=== PATIENT | male | born 1960 | race Caucasian/White ===

== ENCOUNTER 2017-05-14 20:39 | Emergency (ER) | payer MEDICAID ==
[~2017-05-14] VITALS: Ht 162.6 cm; Wt 69.0 kg
[~2017-05-14 20:39] MED LIST: ALBU8HFA PO; AMLO5TAB PO; ATOR10TA87 PO; HYDR-3965 PO; LOSA50TA3 PO; MECL-111 PO; NITR0.4T48 SL
[2017-05-14] MEDS ORDERED: ACET-3068 PO (22:52)
[2017-05-14 23:17] VITALS: BP 134/87
== END 2017-05-14 23:24 | disposition home or self-care (01) ==
LOC: ER 20:39
DX: S80.02XA Contusion of left knee, initial encounter (principal); I25.10 Atherosclerotic heart disease of native coronary artery without angina pectoris; Z86.73 Personal history of transient ischemic attack (TIA), and cerebral infarction without residual deficits; I10 Essential (primary) hypertension; I25.2 Old myocardial infarction; E78.00 Pure hypercholesterolemia, unspecified; J45.909 Unspecified asthma, uncomplicated; Z56.0 Unemployment, unspecified; Z79.899 Other long term (current) drug therapy; W01.0XXA Fall on same level from slipping, tripping and stumbling without subsequent striking against object, initial encounter; Y93.89 Activity, other specified; Y92.89 Other specified places as the place of occurrence of the external cause; Y99.8 Other external cause status
CPT/HCPCS: 73564; 99284

== ENCOUNTER 2017-05-19 01:23 | Emergency (ER) | payer MEDICAID ==
[~2017-05-19] VITALS: Ht 162.6 cm; Wt 70.0 kg
[~2017-05-19 01:23] MED LIST changes: +ACET-3068 PO
[2017-05-19] MEDS ORDERED: HYDROcodone/acetaminophen 10/325mg tab PO ONE (02:10)
[2017-05-19 02:56] VITALS: BP 118/64
== END 2017-05-19 02:58 | disposition home or self-care (01) ==
LOC: ER 01:23
DX: M25.462 Effusion, left knee (principal); M25.562 Pain in left knee; I25.10 Atherosclerotic heart disease of native coronary artery without angina pectoris; E78.00 Pure hypercholesterolemia, unspecified; I10 Essential (primary) hypertension; I25.2 Old myocardial infarction; J45.909 Unspecified asthma, uncomplicated; Z56.0 Unemployment, unspecified; Z86.73 Personal history of transient ischemic attack (TIA), and cerebral infarction without residual deficits; Z79.899 Other long term (current) drug therapy; Z91.041 Radiographic dye allergy status; W19.XXXA Unspecified fall, initial encounter; Y93.89 Activity, other specified; Y92.89 Other specified places as the place of occurrence of the external cause; Y99.9 Unspecified external cause status
CPT/HCPCS: 99284; A6449

== ENCOUNTER 2017-08-15 13:55 | Emergency (ER) | payer MEDICAID ==
[~2017-08-15] VITALS: Ht 162.6 cm; Wt 65.0 kg
[~2017-08-15 13:55] MED LIST changes: -ACET-3068 PO
[2017-08-15] MEDS ORDERED: aspirin 81mg tab.chew PO ONE (14:25)
[2017-08-15 14:58] LABS: BASOPHILS % (AUTO) 0.5 % (0-1); EOSINOPHILS # (AUTO) 0.2 X10'3 (0-0.9); EOSINOPHILS % (AUTO) 3.2 % (0-6); HEMATOCRIT 41.4 % (42.0-52.0); HEMOGLOBIN 14.1 g/dl (14.0-17.9); LYMPHOCYTES # (AUTO) 1.1 X10'3 (1.1-4.8); LYMPHOCYTES % (AUTO) 14.3 % (21-51); MEAN CORPUSCULAR HEMOGLOBIN 32.1 PG (27.0-31.0); MEAN CORPUSCULAR HGB CONC 34.1 % (33.0-36.5); MEAN CORPUSCULAR VOLUME 94.1 FL (78-98); MEAN PLATELET VOLUME 8.3 FL (7.4-10.4); MONOCYTES # (AUTO) 0.5 X10'3 (0-0.9); MONOCYTES % (AUTO) 6.5 % (2-12); NEUTROPHILS # (AUTO) 5.8 X10'3 (1.8-7.7); NEUTROPHILS % (AUTO) 75.5 % (42-75); PLATELET COUNT 165 X10'3 (140-440); RED CELL DISTRIBUTION WIDTH 15.3 % (11.5-14.5); WHITE BLOOD COUNT 7.7 X10'3 (4.5-11.0)
[2017-08-15 15:14] LABS: ALANINE AMINOTRANSFERASE 15 U/L (12-78); ALBUMIN 3.9 G/DL (3.4-5.0); ALKALINE PHOSPHATASE 76 IU/L (46-116); ANION GAP 10 (8-16); ASPARTATE AMINO TRANSFERASE 12 U/L (10-37); BILIRUBIN,TOTAL 0.7 MG/DL (0.1-1.0); BLOOD UREA NITROGEN 20 MG/DL (7-18); BUN/CREATININE RATIO 10.4 (5.4-32.0); CALCIUM 8.9 MG/DL (8.5-10.1); CHLORIDE 108 MMOL/L (99-107); CREATININE 1.92 MG/DL (0.60-1.10); GLUCOSE 114 MG/DL (70-104); POTASSIUM 4.1 MMOL/L (3.5-5.1); SODIUM 142 MMOL/L (135-145); TOTAL CARBON DIOXIDE 24.1 MMOL/L (24-32); TOTAL PROTEIN 7.7 G/DL (6.4-8.2); eGFR 36 ML/MIN
[2017-08-15] MEDS ORDERED: MECL-111 PO (16:09)
[2017-08-15] MEDS ORDERED: ONDA4TAB9 PO (16:09)
[2017-08-15 17:33] VITALS: BP 142/68
== END 2017-08-15 18:34 | disposition home or self-care (01) ==
LOC: ER 13:56
DX: I12.9 Hypertensive chronic kidney disease with stage 1 through stage 4 chronic kidney disease, or unspecified chronic kidney disease (principal); R42 Dizziness and giddiness; N18.9 Chronic kidney disease, unspecified; R07.9 Chest pain, unspecified; I25.10 Atherosclerotic heart disease of native coronary artery without angina pectoris; E78.00 Pure hypercholesterolemia, unspecified; I25.2 Old myocardial infarction; J45.909 Unspecified asthma, uncomplicated; Z56.0 Unemployment, unspecified; Z86.73 Personal history of transient ischemic attack (TIA), and cerebral infarction without residual deficits; Z88.8 Allergy status to other drugs, medicaments and biological substances; Z79.899 Other long term (current) drug therapy
CPT/HCPCS: 36415; 70450; 71045; 80053; 83735; 83880; 84484; 85025; 93005; 99285

== ENCOUNTER 2017-08-23 08:05 | Inpatient (IN) | payer MEDICAID ==
[~2017-08-23] VITALS: Ht 162.6 cm; Wt 65.0 kg
[2017-08-23] MEDS ORDERED: normal saline 1000ML IV soln IVB ONE (08:25)
[2017-08-23] MEDS ORDERED: TIZA2TAB4 PO (08:28)
[2017-08-23] MEDS ORDERED: ASPI81TA52 PO (08:28)
[2017-08-23] MEDS ORDERED: CITA-278 PO (08:28)
[2017-08-23] MEDS ORDERED: GABA-532 PO (08:28)
[2017-08-23] MEDS ORDERED: verapamil 2.5 mg/ml inj IV ONE (08:30)
[2017-08-23] MEDS: diltiazem-NS 100mg/100ml 100 ML IV PRN (08:47)
[2017-08-23 08:49] LABS: BASOPHILS % (AUTO) 0.1 % (0-1); EOSINOPHILS # (AUTO) 0.2 X10'3 (0-0.9); EOSINOPHILS % (AUTO) 2.3 % (0-6); HEMATOCRIT 41.8 % (42.0-52.0); HEMOGLOBIN 14.4 g/dl (14.0-17.9); LYMPHOCYTES # (AUTO) 1.3 X10'3 (1.1-4.8); LYMPHOCYTES % (AUTO) 17.2 % (21-51); MEAN CORPUSCULAR HEMOGLOBIN 32.3 PG (27.0-31.0); MEAN CORPUSCULAR HGB CONC 34.5 % (33.0-36.5); MEAN CORPUSCULAR VOLUME 93.6 FL (78-98); MEAN PLATELET VOLUME 8.7 FL (7.4-10.4); MONOCYTES # (AUTO) 0.5 X10'3 (0-0.9); MONOCYTES % (AUTO) 6.7 % (2-12); NEUTROPHILS # (AUTO) 5.6 X10'3 (1.8-7.7); NEUTROPHILS % (AUTO) 73.7 % (42-75); PLATELET COUNT 145 X10'3 (140-440); RED BLOOD COUNT 4.47 X10'6 (4.70-6.10); RED CELL DISTRIBUTION WIDTH 14.4 % (11.5-14.5); WHITE BLOOD COUNT 7.6 X10'3 (4.5-11.0)
[2017-08-23 08:59] LABS: INR 1.2 INR; PARTIAL THROMBOPLASTIN TIME 27 SECONDS (22-32); PROTHROMBIN TIME 12.5 SECONDS (9.0-12.0)
[2017-08-23 09:03] LABS: ALANINE AMINOTRANSFERASE 17 U/L (12-78); ALBUMIN 3.8 G/DL (3.4-5.0); ALKALINE PHOSPHATASE 72 IU/L (46-116); ANION GAP 14 (8-16); ASPARTATE AMINO TRANSFERASE 14 U/L (10-37); BILIRUBIN,TOTAL 0.6 MG/DL (0.1-1.0); BLOOD UREA NITROGEN 31 MG/DL (7-18); BUN/CREATININE RATIO 15.8 (5.4-32.0); CHLORIDE 108 MMOL/L (99-107); CREATININE 1.96 MG/DL (0.60-1.10); GLUCOSE 112 MG/DL (70-104); MAGNESIUM 1.7 MG/DL (1.5-2.4); POTASSIUM 3.4 MMOL/L (3.5-5.1); SODIUM 142 MMOL/L (135-145); TOTAL CARBON DIOXIDE 19.8 MMOL/L (24-32); TOTAL PROTEIN 7.6 G/DL (6.4-8.2); eGFR 35 ML/MIN
[2017-08-23] MEDS ORDERED: nitroGLYCERIN 0.4mg SUBLingual tab SL PRN (11:50)
[2017-08-23] MEDS: potassium Cl 20mEq in NS 1,000 ML IV SCH ×2 (11:51→20:36)
[2017-08-23] MEDS ORDERED: acetaminophen 650mg rectal suppository RC PRN (11:55)
[2017-08-23] MEDS ORDERED: magnesium hydroxide 30ml (MOM) UD suspension PO PRN (11:55)
[2017-08-23] MEDS ORDERED: bisacodyl 10mg suppository rectal RC PRN (11:55)
[2017-08-23] MEDS ORDERED: metoclopramide 5 mg/ml inj IV PRN (11:55)
[2017-08-23] MEDS ORDERED: morphine 4 MG/ML inj SYRINge IV PRN ×2 (11:55)
[2017-08-23] MEDS ORDERED: HYDROmorphone 1 mg/ml syringe IV PRN ×2 (11:55)
[2017-08-23] MEDS ORDERED: mag hydrox/Alum hydrox/simeth 30ml oral suspension PO PRN (11:55)
[2017-08-23] MEDS ORDERED: potassium Cl 40MEQ/NS 500ml 500 ML IV PRN ×2 (11:55)
[2017-08-23] MEDS ORDERED: diphenhydrAMINE 50 mg/ml inj IV PRN (11:55)
[2017-08-23] MEDS ORDERED: diphenhydrAMINE 25mg capsule PO PRN (11:55)
[2017-08-23] MEDS ORDERED: acetaminophen 325mg tablet PO PRN (11:55)
[2017-08-23] MEDS ORDERED: ondansetron/PF 4mg/2ml inj IV PRN (11:55)
[2017-08-23] MEDS ORDERED: potassium Cl 20 mEq SR tablet PO PRN ×2 (11:55)
[2017-08-23] MEDS ORDERED: HYDROcodone/acetaminophen 10/325mg tab PO PRN (11:55)
[2017-08-23] MEDS ORDERED: HYDROcodone/acetaminophen 5mg/325mg tablet PO PRN (11:55)
[2017-08-23] MEDS ORDERED: diltiazem-NS 100mg/100ml 100 ML IV SCH (12:00)
[2017-08-23] MEDS ORDERED: normal saline 1000ml 1,000 ML IVB ONE (12:03)
[2017-08-23 12:23] LABS: D-DIMER < 0.19 MG/L FEU (0-0.50)
[2017-08-23 12:24] LABS: HEMOGLOBIN A1C 5.9 % (4.5-6.2)
[2017-08-23 12:33] LABS: LIPASE 152 U/L (73-393); PHOSPHORUS 1.7 MG/DL (2.3-4.5)
[2017-08-23 13:55] LABS: CLARITY,URINE CLEAR (Clear); COLOR,URINE STRAW (Yellow); GLUCOSE, URINE NEGATIVE (Neg); KETONES,URINE NEGATIVE (Neg); LEUKOCYTE ESTERASE ,URINE NEGATIVE (Neg); NITRITES, URINE NEGATIVE (Neg); OCCULT BLOOD,URINE NEGATIVE (Neg); PROTEIN,URINE NEGATIVE (Neg); UROBILINOGEN,URINE 0.2 E.U/dL (0.2-1.0)
[2017-08-23] MEDS: tizanidine 4mg tablet PO SCH ×2 (14:00→19:50)
[2017-08-23 14:03] LABS: UA COLLECTION TYPE URINAL
[2017-08-23 14:07] LABS: URINE AMPHETAMINE SCREEN NEGATIVE (Neg); URINE BARBITUATE SCREEN NEGATIVE (Neg); URINE BENZODIAZEPINES SCREEN NEGATIVE (Neg); URINE CANNABINOID SCREEN NEGATIVE (Neg); URINE COCAINE SCREEN NEGATIVE (Neg); URINE METHADONE SCREEN NEGATIVE (Neg); URINE OPIATE SCREEN NEGATIVE (Neg); URINE PHENCYCLIDINE SCREEN NEGATIVE (Neg)
[2017-08-23 17:23] VITALS: BP 136/89
[2017-08-23 19:00] VITALS: BP 123/65
[2017-08-23] MEDS: gabapentin 300mg capsule PO SCH (19:50)
[2017-08-23] MEDS: docusate sod 100mg capsule PO SCH (19:50)
[2017-08-23] MEDS: enoxaparin 60mg/0.6ml syringe SUBCUT SCH (20:37)
[2017-08-23 21:00] VITALS: BP 141/58
[2017-08-23] MEDS ORDERED: temazepam 15mg capsule PO PRN (21:00)
[2017-08-23 23:00] VITALS: BP 114/48
[2017-08-24] VITALS (11 sets, daily range): BP systolic 106–142; BP diastolic 43–81
[2017-08-24] MEDS: tizanidine 4mg tablet PO SCH ×4 (01:45→19:06)
[2017-08-24] MEDS: diltiazem-NS 100mg/100ml 100 ML IV PRN (02:00)
[2017-08-24 05:38] LABS: BASOPHILS % (AUTO) 0.2 % (0-1); EOSINOPHILS # (AUTO) 0.2 X10'3 (0-0.9); EOSINOPHILS % (AUTO) 3.5 % (0-6); HEMATOCRIT 38.1 % (42.0-52.0); HEMOGLOBIN 12.8 g/dl (14.0-17.9); LYMPHOCYTES # (AUTO) 1.9 X10'3 (1.1-4.8); LYMPHOCYTES % (AUTO) 29.3 % (21-51); MEAN CORPUSCULAR HEMOGLOBIN 31.9 PG (27.0-31.0); MEAN CORPUSCULAR HGB CONC 33.7 % (33.0-36.5); MEAN CORPUSCULAR VOLUME 94.7 FL (78-98); MEAN PLATELET VOLUME 9.3 FL (7.4-10.4); MONOCYTES # (AUTO) 0.5 X10'3 (0-0.9); MONOCYTES % (AUTO) 7.2 % (2-12); NEUTROPHILS # (AUTO) 3.9 X10'3 (1.8-7.7); NEUTROPHILS % (AUTO) 59.8 % (42-75); PLATELET COUNT 127 X10'3 (140-440); RED BLOOD COUNT 4.02 X10'6 (4.70-6.10); RED CELL DISTRIBUTION WIDTH 14.7 % (11.5-14.5); WHITE BLOOD COUNT 6.6 X10'3 (4.5-11.0)
[2017-08-24 06:22] LABS: ALANINE AMINOTRANSFERASE 17 U/L (12-78); ALBUMIN/GLOBULIN RATIO 0.9 (1.1-1.5); ALKALINE PHOSPHATASE 61 IU/L (46-116); ANION GAP 12 (8-16); ASPARTATE AMINO TRANSFERASE 14 U/L (10-37); BILIRUBIN,TOTAL 0.4 MG/DL (0.1-1.0); BLOOD UREA NITROGEN 24 MG/DL (7-18); CALCIUM 8.1 MG/DL (8.5-10.1); CHLORIDE 112 MMOL/L (99-107); CHOLESTEROL 86 MG/DL (0-200); GLUCOSE 107 MG/DL (70-104); HDL CHOLESTEROL 29 MG/DL (35-60); LDL CHOLESTEROL 49 MG/DL (50-100); POTASSIUM 4.3 MMOL/L (3.5-5.1); SODIUM 145 MMOL/L (135-145); TOTAL CARBON DIOXIDE 20.7 MMOL/L (24-32); TOTAL PROTEIN 6.2 G/DL (6.4-8.2); TRIGLYCERIDES 55 MG/DL (20-135); eGFR 45 ML/MIN
[2017-08-24] MEDS: enoxaparin 60mg/0.6ml syringe SUBCUT SCH ×2 (08:00→19:09)
[2017-08-24] MEDS: K and/or MAG REPLACEMENT MC SCH (08:00)
[2017-08-24] MEDS: aspirin 81mg tablet.DR PO SCH (08:26)
[2017-08-24] MEDS: atorvastatin 10mg tablet PO SCH (08:26)
[2017-08-24] MEDS: gabapentin 300mg capsule PO SCH ×2 (08:27→19:06)
[2017-08-24] MEDS: citalopram 20mg tablet PO SCH (08:27)
[2017-08-24] MEDS: docusate sod 100mg capsule PO SCH ×2 (08:27→19:06)
[2017-08-24] MEDS: pantoprazole 40mg Tablet.DR PO SCH (08:27)
[2017-08-24] MEDS: amLODIPine 5mg tablet PO SCH (08:27)
[2017-08-24] MEDS: potassium Cl 20mEq in NS 1,000 ML IV SCH ×2 (08:30→17:51)
[2017-08-24] MEDS ORDERED: warfarin 4mg tablet PO SCH (17:10)
[2017-08-24] MEDS ORDERED: warfarin 1mg tablet PO SCH (17:15)
[2017-08-24 18:05] LABS: INR 1.2 INR; PROTHROMBIN TIME 12.3 SECONDS (9.0-12.0)
[2017-08-24] MEDS: metoprolol tartrate 25mg tablet PO SCH (19:06)
[2017-08-25] MEDS: tizanidine 4mg tablet PO SCH ×4 (01:17→19:45)
[2017-08-25 02:00] VITALS: BP 94/52
[2017-08-25] MEDS: potassium Cl 20mEq in NS 1,000 ML IV SCH ×3 (03:50→22:44)
[2017-08-25 06:32] LABS: BASOPHILS % (AUTO) 0.4 % (0-1); EOSINOPHILS # (AUTO) 0.2 X10'3 (0-0.9); EOSINOPHILS % (AUTO) 3.2 % (0-6); HEMATOCRIT 38.5 % (42.0-52.0); HEMOGLOBIN 13.1 g/dl (14.0-17.9); LYMPHOCYTES # (AUTO) 2.1 X10'3 (1.1-4.8); LYMPHOCYTES % (AUTO) 27.6 % (21-51); MEAN CORPUSCULAR HEMOGLOBIN 32.1 PG (27.0-31.0); MEAN CORPUSCULAR HGB CONC 34.2 % (33.0-36.5); MEAN CORPUSCULAR VOLUME 93.9 FL (78-98); MONOCYTES # (AUTO) 0.5 X10'3 (0-0.9); NEUTROPHILS # (AUTO) 4.8 X10'3 (1.8-7.7); NEUTROPHILS % (AUTO) 62.8 % (42-75); PLATELET COUNT 139 X10'3 (140-440); RED CELL DISTRIBUTION WIDTH 14.4 % (11.5-14.5); WHITE BLOOD COUNT 7.7 X10'3 (4.5-11.0)
[2017-08-25 06:42] LABS: INR 1.2 INR; PROTHROMBIN TIME 12.1 SECONDS (9.0-12.0)
[2017-08-25 06:56] LABS: ALANINE AMINOTRANSFERASE 23 U/L (12-78); ALBUMIN/GLOBULIN RATIO 0.9 (1.1-1.5); ALKALINE PHOSPHATASE 64 IU/L (46-116); ANION GAP 8 (8-16); ASPARTATE AMINO TRANSFERASE 17 U/L (10-37); BILIRUBIN,TOTAL 0.4 MG/DL (0.1-1.0); CALCIUM 8.4 MG/DL (8.5-10.1); CHLORIDE 112 MMOL/L (99-107); CREATININE 1.59 MG/DL (0.60-1.10); GLUCOSE 100 MG/DL (70-104); POTASSIUM 4.3 MMOL/L (3.5-5.1); SODIUM 141 MMOL/L (135-145); TOTAL CARBON DIOXIDE 21.5 MMOL/L (24-32); TOTAL PROTEIN 6.4 G/DL (6.4-8.2); eGFR 45 ML/MIN
[2017-08-25 07:00] VITALS: BP 100/83
[2017-08-25 07:10] LABS: BLOOD UREA NITROGEN 22 MG/DL (7-18); BUN/CREATININE RATIO 13.8 (5.4-32.0)
[2017-08-25] MEDS: enoxaparin 60mg/0.6ml syringe SUBCUT SCH ×2 (07:36→20:00)
[2017-08-25] MEDS: atorvastatin 10mg tablet PO SCH (07:37)
[2017-08-25] MEDS: citalopram 20mg tablet PO SCH (07:37)
[2017-08-25] MEDS: aspirin 81mg tablet.DR PO SCH (07:37)
[2017-08-25] MEDS: gabapentin 300mg capsule PO SCH ×2 (07:37→19:46)
[2017-08-25] MEDS: amLODIPine 5mg tablet PO SCH (07:37)
[2017-08-25] MEDS: docusate sod 100mg capsule PO SCH ×2 (07:37→19:47)
[2017-08-25] MEDS: metoprolol tartrate 25mg tablet PO SCH ×2 (07:37→19:46)
[2017-08-25] MEDS: pantoprazole 40mg Tablet.DR PO SCH (07:41)
[2017-08-25] MEDS: K and/or MAG REPLACEMENT MC SCH (08:00)
[2017-08-25 11:00] VITALS: BP 136/70
[2017-08-25 15:00] VITALS: BP 127/78
[2017-08-25 19:00] VITALS: BP 136/80
[2017-08-25] MEDS ORDERED: warfarin 4mg tablet PO SCH (21:00)
[2017-08-25 23:00] VITALS: BP 130/68
[2017-08-26] MEDS: tizanidine 4mg tablet PO SCH ×4 (01:04→20:54)
[2017-08-26 03:00] VITALS: BP 123/65
[2017-08-26] MEDS: acetaminophen 325mg tablet PO PRN (03:13)
[2017-08-26 05:40] LABS: BASOPHILS % (AUTO) 0.2 % (0-1); EOSINOPHILS # (AUTO) 0.2 X10'3 (0-0.9); HEMATOCRIT 37.3 % (42.0-52.0); HEMOGLOBIN 12.8 g/dl (14.0-17.9); LYMPHOCYTES # (AUTO) 1.2 X10'3 (1.1-4.8); LYMPHOCYTES % (AUTO) 13.5 % (21-51); MEAN CORPUSCULAR HEMOGLOBIN 32.1 PG (27.0-31.0); MEAN CORPUSCULAR HGB CONC 34.3 % (33.0-36.5); MEAN CORPUSCULAR VOLUME 93.7 FL (78-98); MEAN PLATELET VOLUME 9.4 FL (7.4-10.4); MONOCYTES # (AUTO) 0.5 X10'3 (0-0.9); MONOCYTES % (AUTO) 5.7 % (2-12); NEUTROPHILS # (AUTO) 7.3 X10'3 (1.8-7.7); NEUTROPHILS % (AUTO) 78.6 % (42-75); PLATELET COUNT 130 X10'3 (140-440); RED BLOOD COUNT 3.98 X10'6 (4.70-6.10); RED CELL DISTRIBUTION WIDTH 14.1 % (11.5-14.5); WHITE BLOOD COUNT 9.3 X10'3 (4.5-11.0)
[2017-08-26 05:59] LABS: INR 1.3 INR; PROTHROMBIN TIME 13.5 SECONDS (9.0-12.0)
[2017-08-26 06:08] LABS: ALANINE AMINOTRANSFERASE 14 U/L (12-78); ALBUMIN/GLOBULIN RATIO 0.9 (1.1-1.5); ALKALINE PHOSPHATASE 65 IU/L (46-116); ANION GAP 12 (8-16); ASPARTATE AMINO TRANSFERASE 13 U/L (10-37); BILIRUBIN,TOTAL 0.8 MG/DL (0.1-1.0); BLOOD UREA NITROGEN 25 MG/DL (7-18); BUN/CREATININE RATIO 14.7 (5.4-32.0); CALCIUM 7.8 MG/DL (8.5-10.1); CHLORIDE 111 MMOL/L (99-107); GLUCOSE 95 MG/DL (70-104); POTASSIUM 4.1 MMOL/L (3.5-5.1); SODIUM 142 MMOL/L (135-145); TOTAL CARBON DIOXIDE 19.4 MMOL/L (24-32); TOTAL PROTEIN 6.3 G/DL (6.4-8.2); eGFR 42 ML/MIN
[2017-08-26 07:05] VITALS: BP 147/73
[2017-08-26] MEDS: enoxaparin 60mg/0.6ml syringe SUBCUT SCH ×3 (08:00→20:54)
[2017-08-26] MEDS: K and/or MAG REPLACEMENT MC SCH (08:00)
[2017-08-26] MEDS: docusate sod 100mg capsule PO SCH ×2 (08:25→20:54)
[2017-08-26] MEDS: pantoprazole 40mg Tablet.DR PO SCH (08:25)
[2017-08-26] MEDS: aspirin 81mg tablet.DR PO SCH (08:25)
[2017-08-26] MEDS: citalopram 20mg tablet PO SCH (08:25)
[2017-08-26] MEDS: metoprolol tartrate 25mg tablet PO SCH ×2 (08:26→20:56)
[2017-08-26] MEDS: gabapentin 300mg capsule PO SCH ×2 (08:26→20:53)
[2017-08-26] MEDS: atorvastatin 10mg tablet PO SCH (08:26)
[2017-08-26] MEDS: amLODIPine 5mg tablet PO SCH (08:26)
[2017-08-26] MEDS: potassium Cl 20mEq in NS 1,000 ML IV SCH ×2 (08:27→21:01)
[2017-08-26 11:00] VITALS: BP 120/63
[2017-08-26] MEDS: LACTOSE-FREE FOOD 237ML (BOOST) PO SCH ×2 (13:00→19:00)
[2017-08-26 15:00] VITALS: BP 128/66
[2017-08-26 19:00] VITALS: BP 163/81
[2017-08-26] MEDS: warfarin 5mg tablet PO SCH (20:55)
[2017-08-26 23:00] VITALS: BP 123/67
[2017-08-27] MEDS: tizanidine 4mg tablet PO SCH ×4 (02:25→20:19)
[2017-08-27 03:00] VITALS: BP 131/66
[2017-08-27 05:00] LABS: BASOPHILS % (AUTO) 0.1 % (0-1); EOSINOPHILS # (AUTO) 0.2 X10'3 (0-0.9); EOSINOPHILS % (AUTO) 1.9 % (0-6); HEMATOCRIT 34.6 % (42.0-52.0); LYMPHOCYTES # (AUTO) 1.7 X10'3 (1.1-4.8); LYMPHOCYTES % (AUTO) 20.4 % (21-51); MEAN CORPUSCULAR HEMOGLOBIN 32.2 PG (27.0-31.0); MEAN CORPUSCULAR HGB CONC 34.6 % (33.0-36.5); MEAN CORPUSCULAR VOLUME 93.2 FL (78-98); MEAN PLATELET VOLUME 9.3 FL (7.4-10.4); MONOCYTES # (AUTO) 0.5 X10'3 (0-0.9); MONOCYTES % (AUTO) 6.2 % (2-12); NEUTROPHILS # (AUTO) 6.1 X10'3 (1.8-7.7); NEUTROPHILS % (AUTO) 71.4 % (42-75); PLATELET COUNT 114 X10'3 (140-440); RED BLOOD COUNT 3.72 X10'6 (4.70-6.10); WHITE BLOOD COUNT 8.5 X10'3 (4.5-11.0)
[2017-08-27 05:07] LABS: INR 1.6 INR; PROTHROMBIN TIME 16.7 SECONDS (9.0-12.0)
[2017-08-27 05:36] LABS: ALANINE AMINOTRANSFERASE 21 U/L (12-78); ALBUMIN 2.8 G/DL (3.4-5.0); ALBUMIN/GLOBULIN RATIO 0.8 (1.1-1.5); ALKALINE PHOSPHATASE 61 IU/L (46-116); ANION GAP 11 (8-16); ASPARTATE AMINO TRANSFERASE 14 U/L (10-37); BILIRUBIN,TOTAL 0.8 MG/DL (0.1-1.0); BLOOD UREA NITROGEN 24 MG/DL (7-18); BUN/CREATININE RATIO 13.5 (5.4-32.0); CALCIUM 8.1 MG/DL (8.5-10.1); CHLORIDE 109 MMOL/L (99-107); CREATININE 1.78 MG/DL (0.60-1.10); GLUCOSE 104 MG/DL (70-104); POTASSIUM 4.5 MMOL/L (3.5-5.1); SODIUM 140 MMOL/L (135-145); TOTAL CARBON DIOXIDE 19.6 MMOL/L (24-32); TOTAL PROTEIN 6.3 G/DL (6.4-8.2); eGFR 40 ML/MIN
[2017-08-27] MEDS: K and/or MAG REPLACEMENT MC SCH (06:39)
[2017-08-27 07:13] VITALS: BP 139/66
[2017-08-27] MEDS: LACTOSE-FREE FOOD 237ML (BOOST) PO SCH ×3 (08:00→18:00)
[2017-08-27] MEDS: enoxaparin 60mg/0.6ml syringe SUBCUT SCH ×2 (08:00→20:18)
[2017-08-27] MEDS ORDERED: amox tr/potassium clavulanate 875/125mg TAB PO SCH (08:45)
[2017-08-27] MEDS: citalopram 20mg tablet PO SCH (09:08)
[2017-08-27] MEDS: gabapentin 300mg capsule PO SCH ×2 (09:08→20:19)
[2017-08-27] MEDS: metoprolol tartrate 25mg tablet PO SCH ×2 (09:09→20:19)
[2017-08-27] MEDS: amLODIPine 5mg tablet PO SCH (09:09)
[2017-08-27] MEDS: atorvastatin 10mg tablet PO SCH (09:10)
[2017-08-27] MEDS: pantoprazole 40mg Tablet.DR PO SCH (09:10)
[2017-08-27] MEDS: docusate sod 100mg capsule PO SCH ×2 (09:11→20:19)
[2017-08-27] MEDS: aspirin 81mg tablet.DR PO SCH (09:12)
[2017-08-27 11:00] VITALS: BP 127/58
[2017-08-27 15:00] VITALS: BP 127/134
[2017-08-27 19:00] VITALS: BP 138/68
[2017-08-27] MEDS: lactobacillus rhamnosus 10,000 MMU CELLS/CAPSULE PO SCH (20:18)
[2017-08-27] MEDS: warfarin 5mg tablet PO SCH (20:20)
[2017-08-27 23:00] VITALS: BP 136/73
[2017-08-27] MEDS: potassium Cl 20mEq in NS 1,000 ML IV SCH ×2 (23:25→23:31)
[2017-08-27] MEDS: acetaminophen 325mg tablet PO PRN (23:28)
[2017-08-28 03:00] VITALS: BP 126/67
[2017-08-28] MEDS: tizanidine 4mg tablet PO SCH ×4 (03:46→20:13)
[2017-08-28 05:55] LABS: BASOPHILS % (AUTO) 0.4 % (0-1); EOSINOPHILS # (AUTO) 0.2 X10'3 (0-0.9); EOSINOPHILS % (AUTO) 2.5 % (0-6); HEMATOCRIT 33.8 % (42.0-52.0); HEMOGLOBIN 11.6 g/dl (14.0-17.9); LYMPHOCYTES # (AUTO) 1.1 X10'3 (1.1-4.8); LYMPHOCYTES % (AUTO) 13.3 % (21-51); MEAN CORPUSCULAR HGB CONC 34.3 % (33.0-36.5); MEAN CORPUSCULAR VOLUME 93.4 FL (78-98); MEAN PLATELET VOLUME 9.7 FL (7.4-10.4); MONOCYTES # (AUTO) 0.6 X10'3 (0-0.9); MONOCYTES % (AUTO) 7.2 % (2-12); NEUTROPHILS # (AUTO) 6.3 X10'3 (1.8-7.7); NEUTROPHILS % (AUTO) 76.6 % (42-75); PLATELET COUNT 110 X10'3 (140-440); RED BLOOD COUNT 3.62 X10'6 (4.70-6.10); RED CELL DISTRIBUTION WIDTH 14.4 % (11.5-14.5); WHITE BLOOD COUNT 8.3 X10'3 (4.5-11.0)
[2017-08-28 06:00] VITALS: BP 132/75
[2017-08-28 06:08] LABS: INR 2.6 INR; PROTHROMBIN TIME 26.1 SECONDS (9.0-12.0)
[2017-08-28 06:21] LABS: ALANINE AMINOTRANSFERASE 22 U/L (12-78); ALBUMIN 2.7 G/DL (3.4-5.0); ALBUMIN/GLOBULIN RATIO 0.7 (1.1-1.5); ALKALINE PHOSPHATASE 60 IU/L (46-116); ANION GAP 12 (8-16); ASPARTATE AMINO TRANSFERASE 21 U/L (10-37); BILIRUBIN,TOTAL 0.6 MG/DL (0.1-1.0); BLOOD UREA NITROGEN 27 MG/DL (7-18); BUN/CREATININE RATIO 14.9 (5.4-32.0); CALCIUM 7.8 MG/DL (8.5-10.1); CHLORIDE 109 MMOL/L (99-107); CREATININE 1.81 MG/DL (0.60-1.10); GLUCOSE 115 MG/DL (70-104); POTASSIUM 4.7 MMOL/L (3.5-5.1); SODIUM 141 MMOL/L (135-145); TOTAL CARBON DIOXIDE 20.2 MMOL/L (24-32); TOTAL PROTEIN 6.4 G/DL (6.4-8.2); eGFR 39 ML/MIN
[2017-08-28] MEDS: citalopram 20mg tablet PO SCH (07:34)
[2017-08-28] MEDS: docusate sod 100mg capsule PO SCH ×2 (07:34→20:15)
[2017-08-28] MEDS: amLODIPine 5mg tablet PO SCH (07:34)
[2017-08-28] MEDS: gabapentin 300mg capsule PO SCH ×2 (07:34→20:16)
[2017-08-28] MEDS: atorvastatin 10mg tablet PO SCH (07:34)
[2017-08-28] MEDS: pantoprazole 40mg Tablet.DR PO SCH (07:34)
[2017-08-28] MEDS: metoprolol tartrate 25mg tablet PO SCH ×2 (07:34→20:15)
[2017-08-28] MEDS: amox tr/potassium clavulanate 875/125mg TAB PO SCH ×2 (07:34→17:17)
[2017-08-28] MEDS: lactobacillus rhamnosus 10,000 MMU CELLS/CAPSULE PO SCH ×2 (07:34→20:13)
[2017-08-28] MEDS: aspirin 81mg tablet.DR PO SCH (07:34)
[2017-08-28] MEDS: K and/or MAG REPLACEMENT MC SCH (08:00)
[2017-08-28] MEDS: LACTOSE-FREE FOOD 237ML (BOOST) PO SCH ×3 (08:00→18:00)
[2017-08-28 11:00] VITALS: BP 120/59
[2017-08-28] MEDS ORDERED: LIDOcaine 1% (10mg/ml) 2ml vial ONE ×2 (12:34→12:40)
[2017-08-28] MEDS: potassium Cl 20mEq in NS 1,000 ML IV SCH (13:13)
[2017-08-28 13:45] LABS: C-REACTIVE PROTEIN 10.38 MG/DL (0.0-0.5)
[2017-08-28 14:51] LABS: GLUCOSE,SYNOVIAL FLUID 87 MG/DL; TOTAL PROTEIN,SYNOVIAL FLUID 4.4 GM/DL
[2017-08-28 15:00] VITALS: BP 146/91
[2017-08-28] MEDS ORDERED: LORazepam 2 mg/ml vial IV ONE (15:30)
[2017-08-28 16:00] LABS: APPEARANCE,SYNOVIAL FLUID CLOUDY; COLOR,SYNOVIAL FLUID OTHER
[2017-08-28 16:01] LABS: SYN RBC 10200 /CU MM (0); SYN WBC 34500 /CU MM (0-200)
[2017-08-28 16:03] LABS: LYMPHOCYTES,SYNOVIAL FLUID 2 % (0-75); NEUTROPHILS,SYNOVIAL FLUID 98 % (0-25); SYNOVIAL FLUID CRYSTALS QT NO CRYSTALS SEEN
[2017-08-28 19:00] VITALS: BP 152/71
[2017-08-28] MEDS: warfarin 5mg tablet PO SCH (20:15)
[2017-08-28 23:00] VITALS: BP 140/71
[2017-08-28] MEDS: acetaminophen 325mg tablet PO PRN (23:56)
[2017-08-29] MEDS: tizanidine 4mg tablet PO SCH ×4 (02:19→21:52)
[2017-08-29 03:00] VITALS: BP 138/76
[2017-08-29 05:44] LABS: INR 3.1 INR; PROTHROMBIN TIME 31.2 SECONDS (9.0-12.0)
[2017-08-29 06:00] VITALS: BP 130/72
[2017-08-29] MEDS: docusate sod 100mg capsule PO SCH ×2 (07:43→21:53)
[2017-08-29] MEDS: amox tr/potassium clavulanate 875/125mg TAB PO SCH (07:43)
[2017-08-29] MEDS: atorvastatin 10mg tablet PO SCH (07:43)
[2017-08-29] MEDS: gabapentin 300mg capsule PO SCH ×2 (07:43→21:53)
[2017-08-29] MEDS: metoprolol tartrate 25mg tablet PO SCH ×2 (07:44→21:52)
[2017-08-29] MEDS: aspirin 81mg tablet.DR PO SCH (07:44)
[2017-08-29] MEDS: citalopram 20mg tablet PO SCH (07:44)
[2017-08-29] MEDS: amLODIPine 5mg tablet PO SCH (07:44)
[2017-08-29] MEDS: pantoprazole 40mg Tablet.DR PO SCH (07:44)
[2017-08-29] MEDS: lactobacillus rhamnosus 10,000 MMU CELLS/CAPSULE PO SCH ×2 (07:47→21:51)
[2017-08-29] MEDS: LACTOSE-FREE FOOD 237ML (BOOST) PO SCH ×3 (07:47→18:34)
[2017-08-29] MEDS: K and/or MAG REPLACEMENT MC SCH (08:00)
[2017-08-29] MEDS ORDERED: vancomycin/NS 1 GM ADD-VANTAGE 250 ML IV SCH (08:05)
[2017-08-29] MEDS: vancomycin/NS 1 GM ADD-VANTAGE 250 ML IV SCH (10:06)
[2017-08-29] MEDS: levoFLOXACIN-Levaquin 500mg/D5 100 ML IV SCH (10:06)
[2017-08-29 10:11] LABS: CLARITY,URINE CLEAR (Clear); COLOR,URINE YELLOW (Yellow); GLUCOSE, URINE NEGATIVE (Neg); KETONES,URINE NEGATIVE (Neg); LEUKOCYTE ESTERASE ,URINE NEGATIVE (Neg); NITRITES, URINE NEGATIVE (Neg); OCCULT BLOOD,URINE SMALL (Neg); PH,URINE 5.5 (4.8-8.0); PROTEIN,URINE 30 mg/dl (Neg); UROBILINOGEN,URINE 0.2 E.U/dL (0.2-1.0)
[2017-08-29 10:28] LABS: UA COLLECTION TYPE CLN CATCH MIDSTREAM
[2017-08-29 10:29] LABS: BACTERIA,URINE NONE SEEN /HPF (Neg); RBC,URINE 0-2 /HPF (0-2); WBC,URINE NONE SEEN /HPF (0-4)
[2017-08-29 10:30] LABS: MUCUS STRANDS FEW /LPF (Neg); SQUAMOUS EPITHELIAL CELL,UR FEW /LPF (FEW)
[2017-08-29 11:00] VITALS: BP 140/71
[2017-08-29 15:00] VITALS: BP 135/73
[2017-08-29 16:36] LABS: RHEUM FACTOR QUAL REFLEX TITER POSITIVE (Neg)
[2017-08-29 16:37] LABS: RF TITER 10 IU/ml (Neg)
[2017-08-29] MEDS: indomethacin 25mg capsule PO SCH (17:25)
[2017-08-29 18:00] VITALS: BP 139/74
[2017-08-29 22:00] VITALS: BP 110/60
[2017-08-30 02:00] VITALS: BP 123/57
[2017-08-30] MEDS: tizanidine 4mg tablet PO SCH ×4 (02:25→20:34)
[2017-08-30 06:00] VITALS: BP 122/60
[2017-08-30 06:20] LABS: BASOPHILS % (AUTO) 0.4 % (0-1); EOSINOPHILS # (AUTO) 0.2 X10'3 (0-0.9); EOSINOPHILS % (AUTO) 3.4 % (0-6); HEMOGLOBIN 12.4 g/dl (14.0-17.9); LYMPHOCYTES # (AUTO) 1.1 X10'3 (1.1-4.8); LYMPHOCYTES % (AUTO) 15.3 % (21-51); MEAN CORPUSCULAR HGB CONC 34.6 % (33.0-36.5); MEAN CORPUSCULAR VOLUME 92.5 FL (78-98); MEAN PLATELET VOLUME 8.9 FL (7.4-10.4); MONOCYTES # (AUTO) 0.6 X10'3 (0-0.9); NEUTROPHILS # (AUTO) 5.2 X10'3 (1.8-7.7); NEUTROPHILS % (AUTO) 72.9 % (42-75); PLATELET COUNT 139 X10'3 (140-440); RED BLOOD COUNT 3.89 X10'6 (4.70-6.10); RED CELL DISTRIBUTION WIDTH 14.3 % (11.5-14.5); WHITE BLOOD COUNT 7.2 X10'3 (4.5-11.0)
[2017-08-30 06:57] LABS: PROTHROMBIN TIME 40.7 SECONDS (9.0-12.0)
[2017-08-30 06:59] LABS: ALANINE AMINOTRANSFERASE 30 U/L (12-78); ALBUMIN 2.7 G/DL (3.4-5.0); ALBUMIN/GLOBULIN RATIO 0.7 (1.1-1.5); ALKALINE PHOSPHATASE 63 IU/L (46-116); ANION GAP 12 (8-16); ASPARTATE AMINO TRANSFERASE 20 U/L (10-37); BILIRUBIN,TOTAL 0.7 MG/DL (0.1-1.0); BLOOD UREA NITROGEN 27 MG/DL (7-18); BUN/CREATININE RATIO 15.3 (5.4-32.0); CALCIUM 8.6 MG/DL (8.5-10.1); CHLORIDE 104 MMOL/L (99-107); CREATININE 1.77 MG/DL (0.60-1.10); GLUCOSE 105 MG/DL (70-104); POTASSIUM 4.5 MMOL/L (3.5-5.1); SODIUM 138 MMOL/L (135-145); TOTAL CARBON DIOXIDE 21.8 MMOL/L (24-32); TOTAL PROTEIN 6.8 G/DL (6.4-8.2); eGFR 40 ML/MIN
[2017-08-30 07:03] LABS: INR 4.1 INR
[2017-08-30] MEDS: gabapentin 300mg capsule PO SCH ×2 (07:45→20:33)
[2017-08-30] MEDS: amLODIPine 5mg tablet PO SCH (07:45)
[2017-08-30] MEDS: indomethacin 25mg capsule PO SCH (07:45)
[2017-08-30] MEDS: docusate sod 100mg capsule PO SCH ×2 (07:45→20:33)
[2017-08-30] MEDS: citalopram 20mg tablet PO SCH (07:45)
[2017-08-30] MEDS: aspirin 81mg tablet.DR PO SCH (07:45)
[2017-08-30] MEDS: lactobacillus rhamnosus 10,000 MMU CELLS/CAPSULE PO SCH ×2 (07:45→20:33)
[2017-08-30] MEDS: metoprolol tartrate 25mg tablet PO SCH ×2 (07:45→20:33)
[2017-08-30] MEDS: pantoprazole 40mg Tablet.DR PO SCH (07:45)
[2017-08-30] MEDS: atorvastatin 10mg tablet PO SCH (07:45)
[2017-08-30] MEDS: levoFLOXACIN-Levaquin 500mg/D5 100 ML IV SCH (07:46)
[2017-08-30] MEDS: LACTOSE-FREE FOOD 237ML (BOOST) PO SCH ×3 (07:47→17:51)
[2017-08-30] MEDS: K and/or MAG REPLACEMENT MC SCH (08:00)
[2017-08-30] MEDS: vancomycin/NS 1 GM ADD-VANTAGE 250 ML IV SCH ×2 (08:00→20:19)
[2017-08-30] MEDS: prednisone 10mg tablet PO SCH (09:26)
[2017-08-30] MEDS: doxycycline hyclate 100mg tablet.DR PO SCH ×2 (09:46→17:51)
[2017-08-30 11:00] VITALS: BP 109/56
[2017-08-30 15:00] VITALS: BP 129/65
[2017-08-30 18:00] VITALS: BP 120/59
[2017-08-30 22:00] VITALS: BP 123/61
[2017-08-31] MEDS: tizanidine 4mg tablet PO SCH ×4 (02:17→21:59)
[2017-08-31 06:00] VITALS: BP 116/62
[2017-08-31 07:01] LABS: BASOPHILS % (AUTO) 0.3 % (0-1); EOSINOPHILS # (AUTO) 0.1 X10'3 (0-0.9); EOSINOPHILS % (AUTO) 1.6 % (0-6); HEMATOCRIT 36.3 % (42.0-52.0); HEMOGLOBIN 12.4 g/dl (14.0-17.9); LYMPHOCYTES # (AUTO) 1.3 X10'3 (1.1-4.8); LYMPHOCYTES % (AUTO) 17.9 % (21-51); MEAN CORPUSCULAR HEMOGLOBIN 31.9 PG (27.0-31.0); MEAN CORPUSCULAR HGB CONC 34.2 % (33.0-36.5); MEAN CORPUSCULAR VOLUME 93.3 FL (78-98); MEAN PLATELET VOLUME 9.2 FL (7.4-10.4); MONOCYTES # (AUTO) 0.6 X10'3 (0-0.9); MONOCYTES % (AUTO) 8.8 % (2-12); NEUTROPHILS # (AUTO) 5.2 X10'3 (1.8-7.7); NEUTROPHILS % (AUTO) 71.4 % (42-75); PLATELET COUNT 166 X10'3 (140-440); RED CELL DISTRIBUTION WIDTH 13.9 % (11.5-14.5); WHITE BLOOD COUNT 7.3 X10'3 (4.5-11.0)
[2017-08-31 07:10] LABS: INR 2.9 INR; PROTHROMBIN TIME 28.6 SECONDS (9.0-12.0)
[2017-08-31 07:17] LABS: ALANINE AMINOTRANSFERASE 28 U/L (12-78); ALBUMIN 2.6 G/DL (3.4-5.0); ALBUMIN/GLOBULIN RATIO 0.6 (1.1-1.5); ALKALINE PHOSPHATASE 62 IU/L (46-116); ANION GAP 12 (8-16); ASPARTATE AMINO TRANSFERASE 15 U/L (10-37); BILIRUBIN,TOTAL 0.3 MG/DL (0.1-1.0); BLOOD UREA NITROGEN 33 MG/DL (7-18); BUN/CREATININE RATIO 18.3 (5.4-32.0); CHLORIDE 105 MMOL/L (99-107); GLUCOSE 114 MG/DL (70-104); POTASSIUM 4.5 MMOL/L (3.5-5.1); SODIUM 139 MMOL/L (135-145); TOTAL CARBON DIOXIDE 21.7 MMOL/L (24-32); TOTAL PROTEIN 6.7 G/DL (6.4-8.2); eGFR 39 ML/MIN
[2017-08-31] MEDS: doxycycline hyclate 100mg tablet.DR PO SCH (07:30)
[2017-08-31] MEDS: gabapentin 300mg capsule PO SCH ×2 (07:30→21:58)
[2017-08-31] MEDS: lactobacillus rhamnosus 10,000 MMU CELLS/CAPSULE PO SCH ×2 (07:30→21:58)
[2017-08-31] MEDS: atorvastatin 10mg tablet PO SCH (07:30)
[2017-08-31] MEDS: citalopram 20mg tablet PO SCH (07:31)
[2017-08-31] MEDS: metoprolol tartrate 25mg tablet PO SCH ×2 (07:31→21:58)
[2017-08-31] MEDS: docusate sod 100mg capsule PO SCH ×2 (07:31→21:59)
[2017-08-31] MEDS: pantoprazole 40mg Tablet.DR PO SCH (07:32)
[2017-08-31] MEDS: aspirin 81mg tablet.DR PO SCH (07:32)
[2017-08-31] MEDS: amLODIPine 5mg tablet PO SCH (07:32)
[2017-08-31] MEDS: LACTOSE-FREE FOOD 237ML (BOOST) PO SCH ×3 (07:34→18:08)
[2017-08-31] MEDS: K and/or MAG REPLACEMENT MC SCH (08:00)
[2017-08-31] MEDS: prednisone 10mg tablet PO SCH (08:48)
[2017-08-31 11:00] VITALS: BP 119/57
[2017-08-31 15:00] VITALS: BP 127/60
[2017-08-31] MEDS ORDERED: warfarin 2.5mg tablet PO ONE (21:00)
[2017-08-31] MEDS: vancomycin/NS 1 GM ADD-VANTAGE 250 ML IV SCH (22:02)
[2017-09-01] MEDS: tizanidine 4mg tablet PO SCH ×4 (02:21→19:33)
[2017-09-01 06:00] VITALS: BP 128/63
[2017-09-01] MEDS ORDERED: VANCOMYCIN LEVEL IV ONE (07:30)
[2017-09-01] MEDS: docusate sod 100mg capsule PO SCH ×2 (07:53→19:28)
[2017-09-01] MEDS: lactobacillus rhamnosus 10,000 MMU CELLS/CAPSULE PO SCH ×2 (07:53→19:30)
[2017-09-01] MEDS: atorvastatin 10mg tablet PO SCH (07:53)
[2017-09-01] MEDS: LACTOSE-FREE FOOD 237ML (BOOST) PO SCH ×3 (07:53→17:55)
[2017-09-01] MEDS: amLODIPine 5mg tablet PO SCH (07:54)
[2017-09-01] MEDS: pantoprazole 40mg Tablet.DR PO SCH (07:54)
[2017-09-01] MEDS: prednisone 10mg tablet PO SCH (07:54)
[2017-09-01] MEDS: aspirin 81mg tablet.DR PO SCH (07:54)
[2017-09-01] MEDS: metoprolol tartrate 25mg tablet PO SCH ×2 (07:54→19:31)
[2017-09-01] MEDS: gabapentin 300mg capsule PO SCH ×2 (07:54→19:28)
[2017-09-01] MEDS: citalopram 20mg tablet PO SCH (07:55)
[2017-09-01] MEDS: K and/or MAG REPLACEMENT MC SCH (08:00)
[2017-09-01 08:53] LABS: BASOPHILS % (AUTO) 0.1 % (0-1); EOSINOPHILS # (AUTO) 0.1 X10'3 (0-0.9); EOSINOPHILS % (AUTO) 1.6 % (0-6); LYMPHOCYTES # (AUTO) 2.1 X10'3 (1.1-4.8); LYMPHOCYTES % (AUTO) 22.8 % (21-51); MEAN CORPUSCULAR HEMOGLOBIN 31.5 PG (27.0-31.0); MEAN CORPUSCULAR HGB CONC 33.4 % (33.0-36.5); MEAN CORPUSCULAR VOLUME 94.3 FL (78-98); MEAN PLATELET VOLUME 8.4 FL (7.4-10.4); MONOCYTES # (AUTO) 0.7 X10'3 (0-0.9); MONOCYTES % (AUTO) 7.3 % (2-12); NEUTROPHILS # (AUTO) 6.2 X10'3 (1.8-7.7); NEUTROPHILS % (AUTO) 68.2 % (42-75); PLATELET COUNT 202 X10'3 (140-440); RED BLOOD COUNT 3.82 X10'6 (4.70-6.10); WHITE BLOOD COUNT 9.2 X10'3 (4.5-11.0)
[2017-09-01 09:01] LABS: PROTHROMBIN TIME 19.9 SECONDS (9.0-12.0)
[2017-09-01 09:07] LABS: ALANINE AMINOTRANSFERASE 32 U/L (12-78); ALBUMIN 2.7 G/DL (3.4-5.0); ALBUMIN/GLOBULIN RATIO 0.7 (1.1-1.5); ALKALINE PHOSPHATASE 63 IU/L (46-116); ANION GAP 11 (8-16); ASPARTATE AMINO TRANSFERASE 20 U/L (10-37); BILIRUBIN,TOTAL 0.3 MG/DL (0.1-1.0); BLOOD UREA NITROGEN 37 MG/DL (7-18); BUN/CREATININE RATIO 21.1 (5.4-32.0); CALCIUM 8.6 MG/DL (8.5-10.1); CHLORIDE 106 MMOL/L (99-107); CREATININE 1.75 MG/DL (0.60-1.10); GLUCOSE 108 MG/DL (70-104); POTASSIUM 4.2 MMOL/L (3.5-5.1); SODIUM 139 MMOL/L (135-145); TOTAL CARBON DIOXIDE 22.4 MMOL/L (24-32); TOTAL PROTEIN 6.8 G/DL (6.4-8.2); eGFR 40 ML/MIN
[2017-09-01 09:08] LABS: VANCOMYCIN,TROUGH 19.7 UG/ML (6.0-14.0)
[2017-09-01 11:00] VITALS: BP 121/60
[2017-09-01 15:00] VITALS: BP 125/59
[2017-09-01 19:00] VITALS: BP 141/73
[2017-09-01] MEDS: vancomycin/NS 1 GM ADD-VANTAGE 250 ML IV SCH (19:24)
[2017-09-01] MEDS ORDERED: warfarin 4mg tablet PO ONE (21:00)
[2017-09-02] MEDS: tizanidine 4mg tablet PO SCH ×4 (02:00→19:54)
[2017-09-02 05:00] VITALS: BP 122/67
[2017-09-02 06:16] LABS: BASOPHILS % (AUTO) 0.4 % (0-1); EOSINOPHILS # (AUTO) 0.2 X10'3 (0-0.9); EOSINOPHILS % (AUTO) 2.1 % (0-6); HEMATOCRIT 35.4 % (42.0-52.0); LYMPHOCYTES # (AUTO) 2.2 X10'3 (1.1-4.8); LYMPHOCYTES % (AUTO) 27.1 % (21-51); MEAN CORPUSCULAR HGB CONC 33.9 % (33.0-36.5); MEAN CORPUSCULAR VOLUME 94.4 FL (78-98); MEAN PLATELET VOLUME 8.5 FL (7.4-10.4); MONOCYTES # (AUTO) 0.6 X10'3 (0-0.9); MONOCYTES % (AUTO) 7.5 % (2-12); NEUTROPHILS % (AUTO) 62.9 % (42-75); PLATELET COUNT 217 X10'3 (140-440); RED BLOOD COUNT 3.75 X10'6 (4.70-6.10)
[2017-09-02 06:26] LABS: INR 2.3 INR
[2017-09-02 06:39] LABS: ALANINE AMINOTRANSFERASE 37 U/L (12-78); ALBUMIN 2.7 G/DL (3.4-5.0); ALBUMIN/GLOBULIN RATIO 0.7 (1.1-1.5); ALKALINE PHOSPHATASE 64 IU/L (46-116); ANION GAP 10 (8-16); ASPARTATE AMINO TRANSFERASE 15 U/L (10-37); BILIRUBIN,TOTAL 0.3 MG/DL (0.1-1.0); BLOOD UREA NITROGEN 35 MG/DL (7-18); BUN/CREATININE RATIO 17.4 (5.4-32.0); CALCIUM 8.8 MG/DL (8.5-10.1); CHLORIDE 106 MMOL/L (99-107); CREATININE 2.01 MG/DL (0.60-1.10); GLUCOSE 103 MG/DL (70-104); POTASSIUM 4.1 MMOL/L (3.5-5.1); SODIUM 140 MMOL/L (135-145); TOTAL CARBON DIOXIDE 23.8 MMOL/L (24-32); TOTAL PROTEIN 6.6 G/DL (6.4-8.2); eGFR 34 ML/MIN
[2017-09-02] MEDS: LACTOSE-FREE FOOD 237ML (BOOST) PO SCH ×3 (08:00→18:00)
[2017-09-02] MEDS: K and/or MAG REPLACEMENT MC SCH (08:52)
[2017-09-02] MEDS: gabapentin 300mg capsule PO SCH ×2 (08:59→19:54)
[2017-09-02] MEDS: citalopram 20mg tablet PO SCH (08:59)
[2017-09-02] MEDS: metoprolol tartrate 25mg tablet PO SCH ×2 (09:00→19:55)
[2017-09-02] MEDS: prednisone 10mg tablet PO SCH (09:00)
[2017-09-02] MEDS: lactobacillus rhamnosus 10,000 MMU CELLS/CAPSULE PO SCH ×2 (09:00→19:53)
[2017-09-02] MEDS: aspirin 81mg tablet.DR PO SCH (09:00)
[2017-09-02] MEDS: amLODIPine 5mg tablet PO SCH (09:00)
[2017-09-02] MEDS: atorvastatin 10mg tablet PO SCH (09:00)
[2017-09-02] MEDS: docusate sod 100mg capsule PO SCH ×2 (09:00→19:54)
[2017-09-02] MEDS: pantoprazole 40mg Tablet.DR PO SCH (09:07)
[2017-09-02 10:00] VITALS: BP 119/61
[2017-09-02] MEDS ORDERED: Potassium Cl inj 20 MEQ in normal saline 1000ml 990 ML IV SCH (15:50)
[2017-09-02 18:00] VITALS: BP 123/61
[2017-09-02] MEDS: vancomycin/NS 1 GM ADD-VANTAGE 250 ML IV SCH (19:53)
[2017-09-02] MEDS ORDERED: warfarin 4mg tablet PO ONE (21:00)
[2017-09-02 22:00] VITALS: BP 125/49
[2017-09-03] MEDS: tizanidine 4mg tablet PO SCH ×3 (03:29→13:28)
[2017-09-03 05:00] VITALS: BP 97/58
[2017-09-03 06:29] LABS: INR 2.9 INR; PROTHROMBIN TIME 28.5 SECONDS (9.0-12.0)
[2017-09-03 06:43] LABS: ALANINE AMINOTRANSFERASE 41 U/L (12-78); ALBUMIN 2.7 G/DL (3.4-5.0); ALBUMIN/GLOBULIN RATIO 0.7 (1.1-1.5); ALKALINE PHOSPHATASE 59 IU/L (46-116); ANION GAP 10 (8-16); ASPARTATE AMINO TRANSFERASE 16 U/L (10-37); BILIRUBIN,TOTAL 0.2 MG/DL (0.1-1.0); BLOOD UREA NITROGEN 35 MG/DL (7-18); BUN/CREATININE RATIO 19.3 (5.4-32.0); CALCIUM 8.6 MG/DL (8.5-10.1); CHLORIDE 106 MMOL/L (99-107); CREATININE 1.81 MG/DL (0.60-1.10); GLUCOSE 111 MG/DL (70-104); POTASSIUM 3.9 MMOL/L (3.5-5.1); SODIUM 139 MMOL/L (135-145); TOTAL CARBON DIOXIDE 23.5 MMOL/L (24-32); TOTAL PROTEIN 6.5 G/DL (6.4-8.2); eGFR 39 ML/MIN
[2017-09-03] MEDS: citalopram 20mg tablet PO SCH (07:42)
[2017-09-03] MEDS: pantoprazole 40mg Tablet.DR PO SCH (07:42)
[2017-09-03] MEDS: amLODIPine 5mg tablet PO SCH (07:43)
[2017-09-03] MEDS: lactobacillus rhamnosus 10,000 MMU CELLS/CAPSULE PO SCH (07:43)
[2017-09-03] MEDS: gabapentin 300mg capsule PO SCH (07:43)
[2017-09-03] MEDS: atorvastatin 10mg tablet PO SCH (07:43)
[2017-09-03] MEDS: docusate sod 100mg capsule PO SCH (07:43)
[2017-09-03] MEDS: aspirin 81mg tablet.DR PO SCH (07:43)
[2017-09-03] MEDS: metoprolol tartrate 25mg tablet PO SCH (07:43)
[2017-09-03] MEDS: LACTOSE-FREE FOOD 237ML (BOOST) PO SCH ×2 (07:49→13:28)
[2017-09-03] MEDS: K and/or MAG REPLACEMENT MC SCH (08:00)
[2017-09-03] MEDS ORDERED: predniSONE 5mg tablet PO SCH (08:30)
[2017-09-03 10:00] VITALS: BP 134/72
[2017-09-03] MEDS ORDERED: COU5T PO (16:00)
[2017-09-03] MEDS ORDERED: LINE600T36 PO (16:00)
[2017-09-03] MEDS ORDERED: PANT40TA4 PO (16:00)
[2017-09-03] MEDS ORDERED: PRE5T PO (16:00)
[2017-09-03] MEDS ORDERED: METO25TA6 PO (16:00)
[2017-09-03] MEDS ORDERED: warfarin 1mg tablet PO ONE (21:00)
== END 2017-09-03 17:05 | disposition home health service (06) | DRG 720 ==
LOC: ER 08:05 → ED HOLD 11:51 → EEVIPCON 11:51 → EDBEDREQ 16:31 → PCU 3S 17:18 → ORTHO 4S 09-01 21:02
PROVIDERS: ADMIT Family Medicine; ATTEND Internal Medicine
PROC: 0S9D3ZX Drainage of Left Knee Joint, Percutaneous Approach, Diagnostic (ICD-10-PCS; principal; 2017-08-29)
DX: A41.02 Sepsis due to Methicillin resistant Staphylococcus aureus (principal); J18.1 Lobar pneumonia, unspecified organism; N17.9 Acute kidney failure, unspecified; I48.91 Unspecified atrial fibrillation; N18.3 Chronic kidney disease, stage 3 (moderate); I12.9 Hypertensive chronic kidney disease with stage 1 through stage 4 chronic kidney disease, or unspecified chronic kidney disease; E04.1 Nontoxic single thyroid nodule; E78.00 Pure hypercholesterolemia, unspecified; E78.5 Hyperlipidemia, unspecified; E87.6 Hypokalemia; F17.210 Nicotine dependence, cigarettes, uncomplicated; I25.10 Atherosclerotic heart disease of native coronary artery without angina pectoris; J20.9 Acute bronchitis, unspecified; J45.909 Unspecified asthma, uncomplicated; M06.4 Inflammatory polyarthropathy; M17.12 Unilateral primary osteoarthritis, left knee; R79.1 Abnormal coagulation profile; I25.2 Old myocardial infarction; Z86.73 Personal history of transient ischemic attack (TIA), and cerebral infarction without residual deficits; Z91.041 Radiographic dye allergy status; Z79.899 Other long term (current) drug therapy; Z79.82 Long term (current) use of aspirin
CPT/HCPCS: 36415; 71045; 71046; 71250; 73560; 73721; 74176; 76536; 80053; 80061; 80202; 80305; 81001; 81003; 82945; 83036; 83690; 83735; 83880; 84100; 84145; 84157; 84439; 84443; 84484; 84550; 85025; 85379; 85610; 85651; 85730; 86038; 86140; 86430; 86431; 87040; 87070; 87075; 87077; 87186; 89051; 89060; 93005; 93306; 96361; 96374; 99291; A6258; J1650; J1956; J2060; J2405; J3370; J3480; J3490; J7030; J7512